=== PATIENT | male | born 1995 | race African-American/Black ===

== ENCOUNTER 2018-11-06 14:31 | Emergency (ER) | payer MEDICAID, OTHER ==
[2018-11-06 15:29] LABS: #Lymphocytes 1.6 thou/uL (1.20-3.40); #Monocytes 0.6 thou/uL (0.11-0.59); #Neutrophils 3.1 thou/uL (1.40-6.50); %Basophils 0.5 % (0.0-1.0); %Eosinophils 0.9 % (0.0-10.0); %Lymphocytes 29.4 % (21.0-51.0); %Monocytes 10.9 % (0.0-10.0); %Neutrophils 58.3 % (42.0-75.0); Hemoglobin 14.8 g/dL (14.0-18.0); Mean Corpuscular HGB CONC 34.4 g/dL (32.0-36.0); Mean Corpuscular Hemoglobin 28.5 pg (27.0-31.0); Mean Corpuscular Volume 82.9 fL (78.0-98.0); Mean Platelet Volume 7.3 fL (7.4-10.4); Platelet Count 233 thou/uL (130-400); RBC Distribution Width 11.6 % (11.5-14.5); White Blood Cell (WBC) Count 5.3 thou/uL (4.8-10.8)
[2018-11-06 15:50] LABS: ALT (SGPT) 13 U/L (8-55); AST (SGOT) 15 U/L (5-34); Albumin 4.3 g/dL (3.5-5.0); Alkaline Phosphatase 80 U/L (40-150); Anion Gap 12 mmol/L (10-20); BUN (Urea Nitrogen) 12 mg/dL (8.9-20.6); Bilirubin, Total 0.6 mg/dL (0.2-1.2); Calc. Creatinine Clearance 0 mL/min (70-130); Calcium 9.2 mg/dL (7.8-10.44); Carbon Dioxide 24 mmol/L (22-29); Chloride 105 mmol/L (98-107); Estimated GFR-MDRD Greater than 90; Globulin 2.6 g/dL (2.4-3.5); Glucose 90 mg/dL (70-105); Potassium 4.1 mmol/L (3.5-5.1); Protein, Total 6.9 g/dL (6.0-8.3); Sodium 137 mmol/L (136-145)
--- NOTE | 2018-11-06 16:32 | RAD ---
Radiograph abdomen one view: 11/06/2018 HISTORY: 23-year-old male with GI bleeding and foreign body ingestion. FINDINGS: The inferior aspect of the pelvis has been excluded from the [id number] on both AP images. Bowel g as pattern is nonobstructive. Moderate amount of colonic stool. No evidence of organomegaly. No radiopaque foreign body visualized. IMPRESSION: No radiopaque foreign body
== END 2018-11-06 20:10 | disposition home or self-care (01) ==
LOC: ERS 14:31 → EEVIPCON 14:31 → ERS 20:10
DX: K92.0 Hematemesis (principal); F31.9 Bipolar disorder, unspecified
CPT/HCPCS: 36415; 74018; 80053; 85025

== ENCOUNTER 2020-04-04 18:22 | Emergency (ER) | payer OTHER ==
[2020-04-04 19:48] LABS: #Eosinphils 0.1 thou/uL (0.0-0.7); #Monocytes 0.8 thou/uL (0.11-0.59); #Neutrophils 4.6 thou/uL (1.40-6.50); %Basophils 0.6 % (0.0-1.0); %Lymphocytes 26.6 % (21.0-51.0); %Monocytes 10.4 % (0.0-10.0); %Neutrophils 61.5 % (42.0-75.0); Hemoglobin 15.8 g/dL (14.0-18.0); Mean Corpuscular HGB CONC 33.8 g/dL (32.0-36.0); Mean Corpuscular Hemoglobin 28.1 pg (27.0-31.0); Mean Corpuscular Volume 83.1 fL (78.0-98.0); Mean Platelet Volume 7.7 fL (7.4-10.4); Platelet Count 230 thou/uL (130-400); RBC Distribution Width 11.6 % (11.5-14.5); Red Blood Cell (RBC) Count 5.61 mill/uL (4.70-6.10); White Blood Cell (WBC) Count 7.4 thou/uL (4.8-10.8)
[2020-04-04] MEDS ORDERED: Pantoprazole 40 MG VIAL ONE (19:54)
[2020-04-04 20:08] LABS: ALT (SGPT) 14 U/L (8-55); AST (SGOT) 19 U/L (5-34); Albumin 4.4 g/dL (3.5-5.0); Alkaline Phosphatase 55 U/L (40-110); Anion Gap 13 mmol/L (10-20); BUN (Urea Nitrogen) 14 mg/dL (8.9-20.6); Bilirubin, Total 0.7 mg/dL (0.2-1.2); Calc. Creatinine Clearance 0 mL/min (70-130); Calcium 9.4 mg/dL (7.8-10.44); Carbon Dioxide 28 mmol/L (22-29); Chloride 102 mmol/L (98-107); Estimated GFR-MDRD 81; Globulin 2.8 g/dL (2.4-3.5); Glucose 97 mg/dL (70-105); Lipase 16 U/L (8-78); Potassium 4.6 mmol/L (3.5-5.1); Protein, Total 7.2 g/dL (6.0-8.3); Sodium 138 mmol/L (136-145)
[2020-04-04 20:27] LABS: Bilirubin Negative (Negative); Blood, Urine Negative (Negative); Clarity Extra Turbid (Clear); Glucose, Urine (Dipstick) Normal (Negative); Ketone, Urine Negative (Negative); Leukocyte Negative Leu/uL (Negative); Nitrite Negative (Negative); Protein, Urine (Dipstick) Negative (Neg-Trace); Specific Gravity, Urine 1.022 (1.002-1.036); Urobilinogen Normal mg/dL (Less than 2)
== END 2020-04-04 21:14 ==
LOC: EEVIPCON 18:22 → ERS 18:22
DX: K92.0 Hematemesis (principal); F41.9 Anxiety disorder, unspecified; F31.9 Bipolar disorder, unspecified; Z79.899 Other long term (current) drug therapy
CPT/HCPCS: 36415; 80053; 81003; 82274; 83690; 85025; 96374; C9113

== ENCOUNTER 2021-01-11 19:29 | Emergency (ER) | payer SELFPAY ==
[2021-01-11] MEDS ORDERED: Fluorescein Opthalmic Strip ONE (20:53)
[2021-01-11] MEDS ORDERED: Proparacaine 0.5% Opth 15 ML BOT ONE (20:53)
[2021-01-11] MEDS ORDERED: HYDROcodone/Acetaminophen 5/325 mg Tablet ONE (21:13)
[2021-01-11] MEDS ORDERED: Lidocaine 1% PF 5 ML VIAL ONE (21:26)
== END 2021-01-11 21:53 ==
LOC: ERS 19:29
DX: S01.511A Laceration without foreign body of lip, initial encounter (principal); M79.641 Pain in right hand; Y04.8XXA Assault by other bodily force, initial encounter
CPT/HCPCS: 12011

== ENCOUNTER 2021-09-21 15:36 | Emergency (ER) | payer SELFPAY ==
[2021-09-21] MEDS ORDERED: Bacitracin 1 PK TOP SCH (17:00)
== END 2021-09-21 17:00 ==
LOC: ERS 15:36
DX: S51.812A Laceration without foreign body of left forearm, initial encounter (principal); W26.8XXA Contact with other sharp object(s), not elsewhere classified, initial encounter
CPT/HCPCS: 12002

== ENCOUNTER 2021-10-02 15:20 | Emergency (ER) | payer OTHER, SELFPAY | END 2021-10-02 17:20 | disposition home or self-care (01) | LOC: ERS 15:20 | DX: S51.812A Laceration without foreign body of left forearm, initial encounter (principal); W18.2XXA Fall in (into) shower or empty bathtub, initial encounter; Y92.149 Unspecified place in prison as the place of occurrence of the external cause | CPT/HCPCS: 99283 ==

== ENCOUNTER 2021-10-31 20:29 | Emergency (ER) | payer OTHER, SELFPAY ==
[2021-10-31] MEDS ORDERED: Lidocaine 1% PF 5 ML VIAL ONE (21:05)
[2021-10-31] MEDS ORDERED: Triple Antibiotic Oint 1 GM Packet ONE (22:26)
== END 2021-10-31 22:40 ==
LOC: ERS 20:29
DX: S51.822A Laceration with foreign body of left forearm, initial encounter (principal); W26.8XXA Contact with other sharp object(s), not elsewhere classified, initial encounter
CPT/HCPCS: 12002; 71045; 74018

== ENCOUNTER 2021-11-01 18:57 | Emergency (ER) | payer OTHER, SELFPAY ==
[2021-11-01] MEDS ORDERED: Lidocaine 1% w/Epinephrine 1:100K 20 ML VIAL ONE (22:26)
== END 2021-11-02 00:25 ==
LOC: ERS 18:57
DX: S51.812A Laceration without foreign body of left forearm, initial encounter (principal); K59.00 Constipation, unspecified; W25.XXXA Contact with sharp glass, initial encounter
CPT/HCPCS: 12002; 71045; 74018

== ENCOUNTER 2021-11-02 13:42 | Emergency (ER) | payer OTHER, SELFPAY | END 2021-11-02 16:38 | LOC: EEVIPCON 13:42 → ERS 13:42 | DX: S51.822A Laceration with foreign body of left forearm, initial encounter (principal); W45.8XXA Other foreign body or object entering through skin, initial encounter ==

== ENCOUNTER 2021-11-02 18:13 | Emergency (ER) | payer OTHER, SELFPAY | END 2021-11-02 18:43 | disposition home or self-care (01) | LOC: EEVIPCON 18:13 → ERS 18:13 | DX: S51.822A Laceration with foreign body of left forearm, initial encounter (principal); W26.8XXA Contact with other sharp object(s), not elsewhere classified, initial encounter | CPT/HCPCS: 99283 ==

== ENCOUNTER 2021-11-06 19:40 | Emergency (ER) | payer OTHER, SELFPAY ==
[2021-11-06] MEDS ORDERED: Fentanyl 100 MCG/2 ML VIAL ONE (20:53)
[2021-11-06] MEDS ORDERED: Ondansetron PF 4 MG/2 ML Vial ONE (20:53)
[2021-11-06] MEDS ORDERED: CEFAZOLIN 1 GM VIAL ONE (20:53)
[2021-11-06] MEDS ORDERED: Boostrix 0.5 ML (Tdap) VIAL ONE (20:54)
[2021-11-06 21:41] LABS: #Eosinphils 0.1 thou/uL (0.0-0.7); #Lymphocytes 1.9 thou/uL (1.20-3.40); #Monocytes 0.4 thou/uL (0.11-0.59); #Neutrophils 3.5 thou/uL (1.40-6.50); %Basophils 0.3 % (0.0-1.0); %Lymphocytes 31.7 % (21.0-51.0); %Monocytes 7.3 % (0.0-10.0); %Neutrophils 59.7 % (42.0-75.0); Hemoglobin 15.6 g/dL (14.0-18.0); Mean Corpuscular HGB CONC 32.1 g/dL (32.0-36.0); Mean Corpuscular Hemoglobin 27.9 pg (27.0-31.0); Mean Corpuscular Volume 86.8 fL (78.0-98.0); Mean Platelet Volume 8.2 fL (7.4-10.4); Platelet Count 238 thou/uL (130-400); RBC Distribution Width 11.8 % (11.5-14.5); Red Blood Cell (RBC) Count 5.59 mill/uL (4.70-6.10); White Blood Cell (WBC) Count 5.9 thou/uL (4.8-10.8)
[2021-11-06 21:52] LABS: INR-International Normal Ratio 1.1; PTT 30.2 sec (22.9-36.1); Prothrombin Time 14.5 sec (12.0-14.7)
[2021-11-06 22:01] LABS: ALT (SGPT) 15 U/L (8-55); AST (SGOT) 20 U/L (5-34); Albumin 4.7 g/dL (3.5-5.0); Alkaline Phosphatase 54 U/L (40-110); Anion Gap 13 mmol/L (10-20); BUN (Urea Nitrogen) 8 mg/dL (8.9-20.6); Bilirubin, Total 0.9 mg/dL (0.2-1.2); Calc. Creatinine Clearance 0 mL/min (70-130); Calcium 9.8 mg/dL (7.8-10.44); Carbon Dioxide 29 mmol/L (22-29); Chloride 101 mmol/L (98-107); Estimated GFR 80; Globulin 3.1 g/dL (2.4-3.5); Glucose 81 mg/dL (70-105); Potassium 4.1 mmol/L (3.5-5.1); Protein, Total 7.8 g/dL (6.0-8.3); Sodium 139 mmol/L (136-145)
[2021-11-06] MEDS ORDERED: PROPOFOL 20 ML ONE (22:02)
[2021-11-06 22:40] LABS: SARS-CoV-2 NAA Rapid Test Not Detected (NotDetected)
[2021-11-06] MEDS ORDERED: Lidocaine 1% w/Epinephrine 1:100K 20 ML VIAL ONE (23:14)
[2021-11-06] MEDS ORDERED: Bacitracin 1 PK ONE (23:35)
== END 2021-11-06 23:58 ==
LOC: ERS 19:40
DX: S51.822A Laceration with foreign body of left forearm, initial encounter (principal); Z23 Encounter for immunization; X78.8XXA Intentional self-harm by other sharp object, initial encounter
CPT/HCPCS: 10120; 80053; 85025; 85610; 85730; 90471; 90715; 96361; 96374; 96375; 99152; J0690; J2405; J2704; J3010; U0002

== ENCOUNTER 2021-11-08 20:31 | Emergency (ER) | payer SELFPAY ==
[~2021-11-08 20:31] MED LIST: ISOVUE-370 76%-LOCM 1 ML ONE
[2021-11-08 21:34] LABS: #Eosinphils 0.1 thou/uL (0.0-0.7); #Lymphocytes 1.7 thou/uL (1.20-3.40); #Monocytes 0.7 thou/uL (0.11-0.59); #Neutrophils 3.8 thou/uL (1.40-6.50); %Basophils 0.1 % (0.0-1.0); %Eosinophils 1.9 % (0.0-10.0); %Lymphocytes 27.7 % (21.0-51.0); %Monocytes 10.4 % (0.0-10.0); %Neutrophils 59.9 % (42.0-75.0); Hemoglobin 14.5 g/dL (14.0-18.0); Mean Corpuscular HGB CONC 33.5 g/dL (32.0-36.0); Mean Corpuscular Hemoglobin 28.7 pg (27.0-31.0); Mean Corpuscular Volume 85.7 fL (78.0-98.0); Mean Platelet Volume 7.7 fL (7.4-10.4); Platelet Count 211 thou/uL (130-400); RBC Distribution Width 11.7 % (11.5-14.5); Red Blood Cell (RBC) Count 5.04 mill/uL (4.70-6.10); White Blood Cell (WBC) Count 6.3 thou/uL (4.8-10.8)
[2021-11-08 22:13] LABS: ALT (SGPT) 14 U/L (8-55); AST (SGOT) 28 U/L (5-34); Albumin 4.2 g/dL (3.5-5.0); Alkaline Phosphatase 47 U/L (40-110); Anion Gap 9 mmol/L (10-20); BUN (Urea Nitrogen) 12 mg/dL (8.9-20.6); Bilirubin, Total 0.7 mg/dL (0.2-1.2); Calc. Creatinine Clearance 0 mL/min (70-130); Calcium 9.5 mg/dL (7.8-10.44); Carbon Dioxide 33 mmol/L (22-29); Chloride 102 mmol/L (98-107); Estimated GFR 79; Globulin 2.8 g/dL (2.4-3.5); Glucose 97 mg/dL (70-105); Potassium 3.9 mmol/L (3.5-5.1); Sodium 140 mmol/L (136-145)
== END 2021-11-09 00:05 ==
LOC: ERS 20:31
DX: S51.802A Unspecified open wound of left forearm, initial encounter (principal); L02.512 Cutaneous abscess of left hand; I10 Essential (primary) hypertension; W45.8XXA Other foreign body or object entering through skin, initial encounter
CPT/HCPCS: 80053; 85025; 87070; 87205; Q9966

== ENCOUNTER 2021-11-11 13:17 | Emergency (ER) | payer SELFPAY ==
[2021-11-11 13:53] LABS: #Eosinphils 0.1 thou/uL (0.0-0.7); #Lymphocytes 1.4 thou/uL (1.20-3.40); #Monocytes 0.6 thou/uL (0.11-0.59); #Neutrophils 2.7 thou/uL (1.40-6.50); %Basophils 0.2 % (0.0-1.0); %Eosinophils 1.7 % (0.0-10.0); %Lymphocytes 28.6 % (21.0-51.0); %Monocytes 12.1 % (0.0-10.0); %Neutrophils 57.5 % (42.0-75.0); Hemoglobin 14.5 g/dL (14.0-18.0); Mean Corpuscular HGB CONC 33.1 g/dL (32.0-36.0); Mean Corpuscular Hemoglobin 28.5 pg (27.0-31.0); Mean Corpuscular Volume 86.1 fL (78.0-98.0); Mean Platelet Volume 7.7 fL (7.4-10.4); Platelet Count 242 thou/uL (130-400); RBC Distribution Width 11.6 % (11.5-14.5); Red Blood Cell (RBC) Count 5.07 mill/uL (4.70-6.10); White Blood Cell (WBC) Count 4.7 thou/uL (4.8-10.8)
[2021-11-11] MEDS ORDERED: Ketamine 50 MG/ML (10ML VIAL) ONE (13:53)
== END 2021-11-11 16:03 ==
LOC: ERS 13:17
DX: S51.822A Laceration with foreign body of left forearm, initial encounter (principal); R45.851 Suicidal ideations; R45.850 Homicidal ideations; I10 Essential (primary) hypertension; X78.9XXA Intentional self-harm by unspecified sharp object, initial encounter
CPT/HCPCS: 24200; 36415; 85025; 96372; 99152; 99153